=== PATIENT | male | born 1950 | race Two or more races ===

== ENCOUNTER 2025-08-06 23:57 | Inpatient (IN) | payer MEDICARE, OTHER ==
[~2025-08-06] VITALS: Ht 172.7 cm; Wt 69.4 kg
[2025-08-07] MEDS ORDERED: ONDANSETRON HCL/PF 4 MG/2 ML VIAL ONE (00:45)
[2025-08-07] MEDS: ONDANSETRON HCL/PF 4 MG/2 ML VIAL IVP ONE (00:51)
[2025-08-07] MEDS: IV NS 0.9% 500 ML BAG IV ONE (00:51)
[2025-08-07 01:13] LABS: PLATELET COUNT (AUTO) 108 K/uL (150-450); RED BLOOD CELL COUNT(AUTO) 2.80 MIL/uL (4.5-6.0); RED CELL DISTRIBUTION WIDTH 19.3 % (11.5-15.0); WHITE BLOOD COUNT (AUTO) 9.5 K/uL (4.3-11.0)
[2025-08-07 01:30] LABS: ASPARTATE AMINOTRANSFERASE 20 U/L (15-37); CALCIUM, SERUM 8.6 mg/dL (8.5-10.1); CREATININE 0.7 mg/dL (0.6-1.3); SODIUM SERUM 130 mmol/L (136-145); TOTAL PROTEIN, SERUM 7.2 g/dL (6.4-8.2); UREA NITROGEN, BLOOD 10 mg/dL (7-18)
[2025-08-07] MEDS ORDERED: CT SWABBABLE VALVE TRANS SET 1 EA INFUS.SET MC ONE (01:42)
[2025-08-07] MEDS ORDERED: IOHEXOL-300 100 ML VIAL IV ONE (01:42)
[2025-08-07] MEDS ORDERED: IV NS 0.9% 250 ML IV ONE (01:43)
[2025-08-07 02:00] LABS: APPEARANCE,URINE CLEAR (CLEAR); BLOOD, URINE TRACE-INTA Ery/uL (NEGATIVE); LEUKOCYTE ESTERASE ,URINE NEGATIVE (NEGATIVE); NITRITE, URINE NEGATIVE (NEGATIVE); UGLUCOSE TRACE mg/dL (NEGATIVE)
[2025-08-07 02:09] LABS: FINE GRANULAR CASTS,URINE Few /LPF (None Seen); HYALINE CASTS, URINE Few /LPF (None Seen); SQUAMOUS EPITHELIAL CELL,UR Few /HPF (None Seen)
[2025-08-07 02:10] LABS: ADD URINE CULTURE YES
[2025-08-07 02:33] LABS: EOSINOPHILS % (MANUAL) 2 % (0-4); LYMPHOCYTES % (MANUAL) 18 % (16-48); MONOCYTES % (MANUAL) 27 % (0-11.0); NEUTROPHILS % (MANUAL) 53 (42-76); PLATELET ESTIMATE a
[2025-08-07 04:21] LABS: INR 1.18 (0.91-1.10)
[2025-08-07] MEDS ORDERED: PIPERACI/TAZO 3.375GM/D5W 50ML PB IV ONE (05:06)
[2025-08-07] MEDS: PIPERACILLIN /TAZOBACTAM 3.375 G in IV D5W 50 ML IV ONE (05:08)
[2025-08-07] MEDS ORDERED: POTA-10 PO (08:39)
[2025-08-07] MEDS ORDERED: ASCO500T20 PO (08:39)
[2025-08-07] MEDS ORDERED: ACET-73 PO (08:39)
[2025-08-07] MEDS ORDERED: ACET325T53 PO (08:39)
[2025-08-07] MEDS ORDERED: AMIN30LI66 PO (08:39)
[2025-08-07] MEDS ORDERED: AMLO2.5T4 PO (08:39)
[2025-08-07] MEDS ORDERED: ZINC56.713 TP (08:39)
[2025-08-07] MEDS ORDERED: MECL-159 PO (08:39)
[2025-08-07] MEDS ORDERED: ISOS30TA86 PO (08:39)
[2025-08-07] MEDS ORDERED: MULT-213 PO (08:39)
[2025-08-07] MEDS ORDERED: CARV25TA2 PO (08:39)
[2025-08-07] MEDS ORDERED: HYDR-3980 PO (08:39)
[2025-08-07] MEDS ORDERED: IPRA3AMP23 IH (08:39)
[2025-08-07] MEDS ORDERED: FERR325T24 PO (08:39)
[2025-08-07] MEDS ORDERED: BENZ-13 PO (08:39)
[2025-08-07] MEDS ORDERED: DOCU100C36 PO (08:39)
[2025-08-07] MEDS ORDERED: SIME80TA15 PO (08:39)
[2025-08-07] MEDS ORDERED: POLY15DR31 EACHEYE (08:39)
[2025-08-07] MEDS ORDERED: ENOX80DI9 SQ (08:39)
[2025-08-07] MEDS ORDERED: FAMO20TA8 PO (08:39)
[2025-08-07] MEDS ORDERED: ATOR80TA PO (08:39)
[2025-08-07] MEDS ORDERED: ONDA-97 PO (08:39)
[2025-08-07] MEDS ORDERED: FINA5TAB11 PO (08:39)
[2025-08-07] MEDS ORDERED: SENN-261 PO (08:39)
[2025-08-07] MEDS ORDERED: ZINC50TA69 PO (08:39)
[2025-08-07] MEDS ORDERED: DAPA10TA PO (08:39)
[2025-08-07] MEDS ORDERED: TAMS-12 PO (08:39)
[2025-08-07] MEDS ORDERED: ONDANSETRON HCL/PF 4 MG/2 ML VIAL IVP PRN (09:00)
[2025-08-07] MEDS ORDERED: MAG HYDROX/AL HYDROX/SIMETH 30 ML UDC PO PRN (09:00)
[2025-08-07] MEDS ORDERED: Z GUARD REMEDY 4 OZ OINT TP PRN (09:00)
[2025-08-07] MEDS ORDERED: ACETAMINOPHEN 325 MG TABLET PO PRN (09:00)
[2025-08-07] MEDS ORDERED: MAGNESIUM HYDROXIDE 30 ML UDC PO PRN (09:00)
[2025-08-07] MEDS: PANTOPRAZOLE 40 MG VIAL IV SCH (09:16)
[2025-08-07] MEDS: IV NS 0.9% 1,000 ML IV PRN (10:36)
[2025-08-07] MEDS ORDERED: PIPERACILLIN /TAZOBACTAM 3.375 G in IV D5W 50 ML IV SCH (12:00)
[2025-08-07] MEDS: PIPERACILLIN /TAZOBACTAM 3.375 G in IV D5W 100 ML IV SCH (12:55)
[2025-08-07] MEDS ORDERED: FLUMAZENIL 0.5 MG VIAL IV PRN ×2 (15:00)
[2025-08-07] MEDS ORDERED: MIDAZOLAM HCL 2 MG/2ML VIAL IV PRN ×2 (15:00)
[2025-08-07] MEDS ORDERED: FENTANYL PF 250MCG/5ML AMPUL IV PRN ×2 (15:00)
[2025-08-07] MEDS ORDERED: NALOXONE PREFILLED SYRINGE 2 MG/2 ML SYRINGE IV PRN ×2 (15:00)
[2025-08-07 16:00] VITALS: BP 114/63; TEMP 97.5; O2SAT 99
[2025-08-07] MEDS ORDERED: DOCUSATE SODIUM 100 MG CAPSULE PO PRN (18:00)
[2025-08-07] MEDS ORDERED: SIMETHICONE 80 MG TAB.CHEW PO PRN (18:00)
[2025-08-07] MEDS ORDERED: POLYVINYL ALCOHOL/POVIDONE 0.4 ML DROPERETTE EACHEYE PRN (18:30)
[2025-08-07] MEDS: HYDROCODONE/APAP 10/325MG TABLET PO PRN (19:38)
[2025-08-07 19:39] VITALS: BP 114/63; TEMP 97.5; O2SAT 99
[2025-08-07 20:00] VITALS: BP 100/51; TEMP 98.1; O2SAT 97
[2025-08-07] MEDS: ALBUTEROL FS 2.5 MG/3 ML VIAL.NEB NEB SCH (20:10)
[2025-08-07] MEDS: IPRATROPIUM NEB FS 0.5 MG/2.5 ML AMPUL.NEB NEB SCH (20:10)
[2025-08-07] MEDS: ATORVASTATIN 40 MG TABLET PO SCH (21:27)
[2025-08-07] MEDS: SENNOSIDES 8.6 MG TABLET PO SCH (21:27)
[2025-08-07 21:47] VITALS: O2SAT 96
[2025-08-07 22:02] VITALS: O2SAT 100
[2025-08-08] VITALS (10 sets, daily range): BP systolic 91–101; BP diastolic 46–59; TEMP 97.7–98.2; O2SAT 95–100
[2025-08-08 07:47] LABS: PLATELET COUNT (AUTO) 104 K/uL (150-450); RED BLOOD CELL COUNT(AUTO) 2.77 MIL/uL (4.5-6.0); RED CELL DISTRIBUTION WIDTH 18.9 % (11.5-15.0); WHITE BLOOD COUNT (AUTO) 6.1 K/uL (4.3-11.0)
[2025-08-08 08:24] LABS: ASPARTATE AMINOTRANSFERASE 15 U/L (15-37); CALCIUM, SERUM 8.5 mg/dL (8.5-10.1); CREATININE 1.0 mg/dL (0.6-1.3); PHOSPHORUS 4.0 mg/dL (2.5-4.9); SODIUM SERUM 136 mmol/L (136-145); TOTAL PROTEIN, SERUM 6.9 g/dL (6.4-8.2); UREA NITROGEN, BLOOD 8 mg/dL (7-18)
[2025-08-08] MEDS: AMLODIPINE BESYLATE 2.5 MG TABLET PO SCH (09:00)
[2025-08-08] MEDS: CARVEDILOL 12.5 MG TABLET PO SCH (09:00)
[2025-08-08] MEDS: ISOSORBIDE MONONITRATE (30MG) 30 MG TAB.SR.24H PO SCH (09:00)
[2025-08-08] MEDS: ENOXAPARIN SODIUM 80 MG/0.8 ML DISP.SYRIN SQ SCH (09:00)
[2025-08-08] MEDS: FAMOTIDINE (20 MG) 20 MG TABLET PO SCH (09:08)
[2025-08-08] MEDS: PANTOPRAZOLE 40 MG/PACK PACK PO SCH (09:09)
[2025-08-08] MEDS: MULTIVIT W/MINERALS 1 TAB TABLET PO SCH (09:09)
[2025-08-08] MEDS: FINASTERIDE (5 MG) 5 MG TABLET PO SCH (09:09)
[2025-08-08] MEDS: ASCORBIC ACID 500 MG TABLET PO SCH (09:09)
[2025-08-08] MEDS: FERROUS SULFATE (325 MG) 325 MG/TAB TABLET PO SCH (09:09)
[2025-08-08] MEDS: TAMSULOSIN 0.4 MG CAP.SR.24H PO SCH (09:10)
[2025-08-08] MEDS: DAPAGLIFLOZIN PROPANEDIOL 10 MG TABLET PO SCH (09:16)
[2025-08-08] MEDS: PROSOURCE / PROSTAT (PYXIS) 30 ML UDC PO SCH (09:16)
[2025-08-08 09:54] LABS: EOSINOPHILS % (MANUAL) 3 % (0-4); LYMPHOCYTES % (MANUAL) 16 % (16-48); MONOCYTES % (MANUAL) 28 % (0-11.0); NEUTROPHILS % (MANUAL) 53 (42-76); PLATELET ESTIMATE DECREASED
[2025-08-08] MEDS: POTASSIUM CHLORIDE 20 MEQ POWDER PACKET PO ONE (12:46)
[2025-08-08] MEDS: POTASSIUM CHLORIDE 20 MEQ TAB.PRT.SR PO ONE (13:25)
[2025-08-08] MEDS: SOD FERRIC GLUC 125 MG in IV NS 0.9% 100 ML IV SCH (17:39)
[2025-08-09] VITALS (9 sets, daily range): BP systolic 104–108; BP diastolic 44–62; TEMP 97.3–98.8; O2SAT 94–100
[2025-08-09 08:04] LABS: PLATELET COUNT (AUTO) 101 K/uL (150-450); RED BLOOD CELL COUNT(AUTO) 2.90 MIL/uL (4.5-6.0); RED CELL DISTRIBUTION WIDTH 18.8 % (11.5-15.0); WHITE BLOOD COUNT (AUTO) 6.2 K/uL (4.3-11.0)
[2025-08-09 08:10] LABS: CALCIUM, SERUM 8.4 mg/dL (8.5-10.1); CREATININE 0.9 mg/dL (0.6-1.3); SODIUM SERUM 139.0 mmol/L (136-145); UREA NITROGEN, BLOOD 8.0 mg/dL (7-18)
[2025-08-09 09:40] LABS: BASOPHILS % (MANUAL) 0 % (0.0-2.0); EOSINOPHILS % (MANUAL) 3 % (0-4); LYMPHOCYTES % (MANUAL) 20 % (16-48); MONOCYTES % (MANUAL) 28 % (0-11.0); NEUTROPHILS % (MANUAL) 49 (42-76); PLATELET ESTIMATE DECREASED
[2025-08-09] MEDS: POTASSIUM CHLORIDE 20 MEQ POWDER PACKET PO ONE (11:33)
[2025-08-10] VITALS (7 sets, daily range): BP systolic 87–122; BP diastolic 55–61; TEMP 98.4–99.3; O2SAT 94–96
[2025-08-10 06:54] LABS: PLATELET COUNT (AUTO) 97 K/uL (150-450); RED BLOOD CELL COUNT(AUTO) 2.94 MIL/uL (4.5-6.0); RED CELL DISTRIBUTION WIDTH 18.5 % (11.5-15.0); WHITE BLOOD COUNT (AUTO) 6.4 K/uL (4.3-11.0)
[2025-08-10 07:00] LABS: CALCIUM, SERUM 8.5 mg/dL (8.5-10.1); CREATININE 0.9 mg/dL (0.6-1.3); SODIUM SERUM 138.0 mmol/L (136-145); UREA NITROGEN, BLOOD 8.0 mg/dL (7-18)
[2025-08-10] MEDS: POTASSIUM CL. PREMIX PERIPHER. 50 ML IV SCH (10:20)
[2025-08-10 10:33] LABS: EOSINOPHILS % (MANUAL) 2 % (0-4); LYMPHOCYTES % (MANUAL) 21 % (16-48); MONOCYTES % (MANUAL) 25 % (0-11.0); NEUTROPHILS % (MANUAL) 51 (42-76)
[2025-08-10 10:34] LABS: BAND % (MANUAL) 1 % (0.0-5.0); PLATELET ESTIMATE DECREASED
[2025-08-10] MEDS: POTASSIUM CHLORIDE 20 MEQ TAB.PRT.SR PO ONE ×2 (11:39→13:01)
[2025-08-11] VITALS (7 sets, daily range): BP systolic 104–125; BP diastolic 52–68; TEMP 98.6; O2SAT 93–100
[2025-08-11 07:23] LABS: PLATELET COUNT (AUTO) 106 K/uL (150-450); RED BLOOD CELL COUNT(AUTO) 2.86 MIL/uL (4.5-6.0); RED CELL DISTRIBUTION WIDTH 19.1 % (11.5-15.0); WHITE BLOOD COUNT (AUTO) 10.4 K/uL (4.3-11.0)
[2025-08-11 07:33] LABS: CALCIUM, SERUM 8.5 mg/dL (8.5-10.1); CREATININE 0.8 mg/dL (0.6-1.3); SODIUM SERUM 136.0 mmol/L (136-145); UREA NITROGEN, BLOOD 6.0 mg/dL (7-18)
[2025-08-11 12:14] LABS: LYMPHOCYTES % (MANUAL) 17 % (16-48); MONOCYTES % (MANUAL) 28 % (0-11.0); NEUTROPHILS % (MANUAL) 55 (42-76); PLATELET ESTIMATE DECREASED
[2025-08-11] MEDS ORDERED: PANT40SU2 PO (13:40)
[2025-08-11] MEDS ORDERED: PIPE3.379 IV (13:40)
[2025-08-11] MEDS: GLUCERNA SHAKE 237 ML CAN PO SCH (17:00)
[2025-08-11] MEDS: PROSOURCE / PROSTAT (PYXIS) 30 ML UDC PO SCH (17:00)
== END 2025-08-11 20:19 | DRG 862 ==
LOC: ER 23:59 → MED 08-07 07:34
PROVIDERS: ADMIT Nurse Practitioner Acute Care; ATTEND Nurse Practitioner Acute Care
PROC: 0W9G3ZZ Drainage of Peritoneal Cavity, Percutaneous Approach (ICD-10-PCS; principal; 2025-08-07)
DX: T81.43XA Infection following a procedure, organ and space surgical site, initial encounter (principal); K65.1 Peritoneal abscess; S36.031A Moderate laceration of spleen, initial encounter; C49.A0 Gastrointestinal stromal tumor, unspecified site; E44.0 Moderate protein-calorie malnutrition; E87.1 Hypo-osmolality and hyponatremia; Y83.8 Other surgical procedures as the cause of abnormal reaction of the patient, or of later complication, without mention of misadventure at the time of the procedure; Y92.129 Unspecified place in nursing home as the place of occurrence of the external cause; E66.9 Obesity, unspecified; D63.8 Anemia in other chronic diseases classified elsewhere; E88.09 Other disorders of plasma-protein metabolism, not elsewhere classified; I11.0 Hypertensive heart disease with heart failure; J44.9 Chronic obstructive pulmonary disease, unspecified; N40.0 Benign prostatic hyperplasia without lower urinary tract symptoms; E78.5 Hyperlipidemia, unspecified; E87.6 Hypokalemia; Z74.01 Bed confinement status; Z79.84 Long term (current) use of oral hypoglycemic drugs; Z86.718 Personal history of other venous thrombosis and embolism; Z93.3 Colostomy status; K80.20 Calculus of gallbladder without cholecystitis without obstruction; R74.01 Elevation of levels of liver transaminase levels; Z90.49 Acquired absence of other specified parts of digestive tract; I50.9 Heart failure, unspecified; F32.A Depression, unspecified; L89.626 Pressure-induced deep tissue damage of left heel; L89.616 Pressure-induced deep tissue damage of right heel; Z68.23 Body mass index [BMI] 23.0-23.9, adult; Z87.11 Personal history of peptic ulcer disease
CPT/HCPCS: 36415; 71045-TC; 75989-TC; 80048-TC; 80053-TC; 80076-TC; 81001; 83690-TC; 83735-TC; 83935-TC; 84100-TC; 84300-TC; 84443-TC; 84484-TC; 84550-TC; 85027-TC; 85730-TC; 87040-TC; 87081-TC; 87086-TC; 94760-TC; 94799-TC; A4223; G0378; J1650; J2250; J2405; J2470; J2543; J2916; J3010; J3480; J7030; J7040; J7050; J7060; Q9967